=== PATIENT | female | born 1985 | race American Indian/Alaskan Native ===

== ENCOUNTER 2019-09-23 15:47 | Emergency (ER) | payer MEDICAID ==
--- NOTE | 2019-09-23 15:56 | Event Note ---
ED Screening Note ED Screening Note: vaginal bleeding ob would not see her lmp june initial assessment/diagnostic orders/clinical plan/treatment(s) is/are subject to change based on patients health status, clinical progression and re- assessment by fellow clinical providers in the ED. Further treatment and workup at subsequent clinical providers discretion. Patient/guardian urged not to elope from the ED as their condition may be serious if not clinically assessed and managed. Initial orders include: ua/blood/us
[2019-09-23 16:48] LABS: Bilirubin,Urine NEG (Negative); Blood,Urine LG (Negative); Color,Urine Yellow (Yellow); Mucus,Urine FEW /HPF; Protein,Urine <15 mg/dL mg/dL (Negative); Urobilinogen,Urine < 2.0 mg/dL (<2.0)
[2019-09-23 17:06] LABS: Basophils # (Auto) 0.1 K/mm3 (0.0-0.1); Basophils % (Auto) 0.9 % (0.0-1.8); Eosinophils # (Auto) 0.1 K/mm3 (0.0-0.4); Eosinophils % (Auto) 1.7 % (0.0-4.3); Hematocrit 35.6 % (30.3-42.9); Hemoglobin 11.2 gm/dl (10.1-14.3); Lymphocytes # (Auto) 1.6 K/mm3 (1.2-5.4); Lymphocytes % (Auto) 25.7 % (13.4-35.0); Mean Corpuscular HGB Conc 32 % (30-34); Mean Corpuscular Volume 83 fl (79-97); Monocytes # (Auto) 0.3 K/mm3 (0.0-0.8); Monocytes % (Auto) 4.6 % (0.0-7.3); Platelet Count 262 K/mm3 (140-440); Red Blood Count 4.29 M/mm3 (3.65-5.03); Red Cell Distribution Width 15.6 % (13.2-15.2)
[2019-09-23 17:25] LABS: BUN/Creatinine Ratio 11; Blood Urea Nitrogen 9 mg/dL (7-17); Calcium 9.2 mg/dL (8.4-10.2); Hemolysis Index 0
--- NOTE | 2019-09-23 18:18 | Emergency Department Report ---
HPI - General Chief Complaint: Vaginal Bleeding Time Seen by Provider: 09/23/19 15:55 - HPI HPI: 34-year-old -Italian female presents to the emergency department with complaint of some vaginal bleeding while . She says that it started off yesterday originally has some spotting and now it looks more like a normal menstrual cycle amount of bleeding. There is some mild abdominal and/or pelvic cramping. The patient took a home test and then went and had a confirmatory qualitative blood test at [facility] and says that her beta hCG was about 3000 on September 07. She says that her last menstrual cycle was about 06/25/19. With this she is . She has not taken anything for her symptoms prior to presentation today. ED Past Medical Hx - Past Medical History Previous Medical History?: No - Surgical History Past Surgical History?: No - Social History Smoking Status: Never Smoker Substance Use Type: None ED Review of Systems ROS: Stated complaint: POSS MISCAR, BLEEDING Other details as noted in HPI Comment: All other systems reviewed and negative Constitutional: denies: chills, fever Respiratory: denies: shortness of breath Cardiovascular: denies: chest pain Gastrointestinal: denies: nausea, vomiting Genitourinary: other (vaginal bleeding, pelvic cramping). denies: dysuria, discharge Musculoskeletal: denies: back pain Skin: denies: rash, lesions Neurological: denies: headache, weakness Physical Exam - Physical Exam Vital Signs: Vital Signs 09/23/19 09/23/19 15:51 17:17 Temperature 98.0 F Pulse Rate 68 Respiratory 16 16 Rate Blood Pressure 136/87 O2 Sat by Pulse 100 Oximetry Physical Exam: GENERAL: The patient is well-developed well-nourished. HEENT: Normocephalic. Atraumatic. Patient has moist mucous membranes. EYES: Extraocular motions are intact. NECK: Supple. Trachea is midline. CHEST/LUNGS: Clear to auscultation. There is no respiratory distress noted. HEART/CARDIOVASCULAR: Regular. There is no tachycardia. ABDOMEN: Abdomen is soft, nontender. Patient has normal bowel sounds. There is no abdominal distention. SKIN:Skin is warm and dry. . NEURO: The patient is awake, alert, and oriented. The patient is cooperative. The patient has no focal neurologic deficits. Normal speech. MUSCULOSKELETAL: There is no tenderness or deformity. There is no evidence of acute injury. ED Course Vital Signs 09/23/19 09/23/19 15:51 17:17 Temperature 98.0 F Pulse Rate 68 Respiratory 16 16 Rate Blood Pressure 136/87 O2 Sat by Pulse 100 Oximetry - Consultations Consultation #1: 09/23/19 20:[address] Roxi Gresham, [facility], regarding the patient's finding of a right tubal ectopic with decreasing beta hCG. Dr. Gresham has ordered for LFTs to be drawn and if they are normal she has also ordered for methotrexate. After methotrexate is given the patient should be on pelvic rest and should follow-up in the office in the morning as a walk-in. ED Medical Decision Making - Lab Data Result diagrams: 09/23/19 16:26 09/23/19 16:26 - Radiology Data Radiology results: report reviewed ULTRASOUND OBSTETRIC INDICATION / CLINICAL INFORMATION: VAG BLEED IN PREG. TECHNIQUE: Transabdominal and Transvaginal. COMPARISON: None available. FINDINGS: No intrauterine visualized on transvaginal or transabdominal images. ADNEXA: Focal echogenic mass adjacent to right ovary measuring 4.1 cm in greatest diameter likely secondary to tubal ectopic. Both ovaries themselves appear within normal limits. FREE FLUID: None. ADDITIONAL FINDINGS: None. IMPRESSION: 1. Probable right tubal ectopic with 4 cm echogenic mass and probable tubal ring sign adjacent to but separate from right ovary. 2. No IUP - Medical Decision Making This patient presents with some mild pelvic cramping and some vaginal bleeding for the past 24 hours, while . The patient says that she had a beta hCG of about 3000 on September 07. Today the beta hCG was about 260. Nausea was done that showed a probable right tubal ectopic with forcedly echogenic and probable tubal ring that is adjacent to but separate from the right ovary. Patient's abdomen is soft, non-distended and nontoxic in appearance. Vital signs are stable including being afebrile. Patient's [facility] service was contacted and is aware of the findings of the tubal ectopic. A dose of methotrexate was ordered by the [facility] and given the emergency Department. The patient is then safe for discharge home to follow up first thing in the morning as a walk-in when [facility] opens. All of this has been discussed in great detail with the patient and she understands and agrees to the plan. She will return to the emergency department immediately with any worsening of her symptoms or with any acute distress. - Differential Diagnosis threatened miscarriage, spontaneous miscarriage, ectopic, fibroids Critical Care Time: Yes Critical care time in (mins) excluding proc time.: 31 Critical care attestation.: If time is entered above; I have spent that time in minutes in the direct care of this critically ill patient, excluding procedure time. Critical care time spent on this patient and doing her initial evaluation, multiple re-evaluations, ordering and interpretation of labs and imaging, discussion with the [facility] service. This is a medical care patient has failure to appropriately diagnose and treat this condition could lead to a ruptured ectopic, intra-abdominal bleeding, sepsis or even . Critical Care Time: 31 minutes ED Disposition Clinical Impression: Tubal ectopic Qualifiers: Intrauterine status: without intrauterine Laterality: right Qualified Code(s): O00.101 - Right tubal without intrauterine Disposition: DC- TO HOME OR SELFCARE Is pt being admited?: No Condition: Stable Instructions: Methotrexate (Injection), Ectopic (ED) Additional Instructions: Please follow up as a walk-in appointment in the morning upon opening of the [place] [facility] office. Return to the department immediately with any worsening of your symptoms including any increased bleeding or pelvic pains, or with any acute distress. Referrals: ROXI GRESHAM MD [Staff Physician] - [facility] (Walk in appointment. Show up upon opening of [facility] in the morning. ) Forms: Work/School Release Form(ED), Methotrexate D/C Instructions Time of Disposition: 21:05
--- NOTE | 2019-09-23 19:13 | Ultrasound Report ---
ULTRASOUND OBSTETRIC INDICATION / CLINICAL INFORMATION: VAG BLEED IN PREG. TECHNIQUE: Transabdominal and Transvaginal. COMPARISON: None available. FINDINGS: No intrauterine visualized on transvaginal or transabdominal images. ADNEXA: Focal echogenic mass adjacent to right ovary measuring 4.1 cm in greatest diameter likely sec ondary to tubal ectopic. Both ovaries themselves appear within normal limits. FREE FLUID: None. ADDITIONAL FINDINGS: None. IMPRESSION: 1. Probable right tubal ectopic with 4 cm echogenic mass and probable tubal ring sign adjacent to but separate from right ovary. 2. No IUP Critical result discovered at 6:05 PM central hours and called to Dr. Chaudhry at 6:08 PM central stand antoinette time hours on 09/23/2019. A read back was performed. Signer Name: Ceferino Kimbrough MD Signed: 09/23/2019 7:09 PM Workstation Name: [id number]
[2019-09-23 20:38] LABS: Alanine Aminotransferase 17 units/L (7-56); Bilirubin,Direct < 0.2 mg/dL (0-0.2)
[2019-09-23 21:23] VITALS: BP 125/85
== END 2019-09-23 21:23 | disposition home or self-care (01) ==
LOC: ED 15:47
DX: O00.101 Right tubal pregnancy without intrauterine pregnancy (principal)
CPT/HCPCS: 36415; 76801; 76817; 80048; 80076; 81001; 84702; 85025; 86900; 86901; 96372; 99284; J9260